=== PATIENT | female | born 2000 | race Asian ===

== ENCOUNTER 2023-03-08 06:19 | Emergency (ER) | payer OTHER ==
[~2023-03-08] VITALS: Ht 160 cm; Wt 127.0 kg
[2023-03-08 06:30] VITALS: TEMP 99.5
[2023-03-08 07:42] LABS: PLATELET COUNT 331 K/uL (152-353); POTASSIUM 3.5 mmol/L (3.6-5.2)
[2023-03-08 09:31] VITALS: BP 126/75
== END 2023-03-08 09:33 | disposition home or self-care (01) ==
LOC: ED 06:19
PROVIDERS: Emergency Medicine Emergency Medical Services
DX: R07.9 Chest pain, unspecified (principal); M25.511 Pain in right shoulder
CPT/HCPCS: 80053; 81025; 84484; 85027; 85379; 85610; 93005; 99284; J1885; J2360